=== PATIENT | female | born 1980 | race Two or more races ===

== ENCOUNTER 2020-07-18 07:41 | Day surgery (SDC) | payer OTHER ==
[2020-07-18] MEDS ORDERED: PERCOCET 5-3251 EACH PO (14:23)
== END 2020-07-18 17:32 | disposition home or self-care (01) ==
LOC: CIR.AMB 07:41
PROVIDERS: ATTEND Obstetrics & Gynecology Gynecology
DX: Z30.2 Encounter for sterilization (principal); Z30.432 Encounter for removal of intrauterine contraceptive device; Z20.828 Contact with and (suspected) exposure to other viral communicable diseases